=== PATIENT | male | born 1955 | race Caucasian/White ===

== ENCOUNTER 2016-04-08 04:12 | Inpatient (IN) | payer OTHER ==
[2016-04-08] VITALS (7 sets, daily range): BP systolic 99–119; BP diastolic 50–67
[~2016-04-08] VITALS: Ht 177.8 cm; Wt 69.6 kg
[~2016-04-08 04:12] MED LIST: ALB5IS NEB; AMOX500T86 PO; ASPI81TA27 PO; CITA10TA70 PO; CLON0.2T PO; CLOP75TA28 PO; GABA-339 PO; INSLISPI SC; INSUINJ37 SC; Ipratropium Bromide NEB; LOS50T PO; SIMV-13 PO
[2016-04-08] MEDS ORDERED: InsuLIN REG 1unit/0.01ml Soln (100units/ml) IV ONE (04:15)
[2016-04-08] MEDS ORDERED: SODIUM CHLORIDE 0.9% 1,000 ML IV ONE ×2 (04:15→07:30)
[2016-04-08] MEDS ORDERED: SODIUM BICARBONATE 8.4% INJ 50ML SYRINGE ONE (04:17)
[2016-04-08] MEDS ORDERED: PROMETHAZINE HCL 25 MG/ML 1ML ONE (04:25)
[2016-04-08 04:42] LABS: Basophils # (auto) 0 uL; DEFINITIVE VIEW TRANSMISSION; Eosinophils # (auto) 0 uL; Eosinophils % (auto) 0.1 % (0.0-7.0); Hemoglobin 7.4 g/dL (13.5-17.5); Lymphocytes # (auto) 0.9 uL; Lymphocytes % (auto) 5.9 % (10.0-50.0); Mean Corpuscular Hemoglobin 27.6 pg (28.0-32.0); Mean Corpuscular Hgb Conc. 29.5 g/dL (32.0-36.0); Mean Corpuscular Volume 93.6 fL (80.0-100.0); Mean Platelet Volume 8.1 fL (7.4-10.4); Monocytes # (auto) 0 uL; Monocytes % (auto) 0.3 % (0.0-12.0); Neutrophils # (auto) 14.9 uL; Neutrophils % (auto) 93.7 % (37.0-80.0); Platelet Count (auto) 590 10^3/uL (140-450); Red Cell Distribution Width 15.5 % (11.6-16.0); White Blood Cell 15.9 10^3/uL (4.4-10.8)
[2016-04-08] MEDS ORDERED: DEXTROSE (50%) 50ML SYRG IV PRN ×3 (04:45→07:15)
[2016-04-08] MEDS: InsuLIN R (HUMAN) 100 UNITS in SODIUM CHL 0.9% 99 ML IV SCH ×5 (04:54→20:17)
[2016-04-08 05:00] LABS: Albumin 2.4 g/dL (3.4-5.0); Calcium 7.9 mg/dL (8.5-10.1); Magnesium 2.6 mg/dL (1.6-2.6)
[2016-04-08] MEDS ORDERED: PROMETHAZINE HCL 25 MG/ML 1ML IV ONE (05:00)
[2016-04-08] MEDS ORDERED: cefTRIAXone 1GM/50ML D5W 50 ML IV ONE (05:00)
[2016-04-08] MEDS ORDERED: SODIUM BICARBONATE 8.4 % INJ 50ML VIAL IV ONE (05:00)
[2016-04-08] MEDS: ACCU-CHEK COMFORT CURVE STRIP VI SCH ×18 (05:00→23:00)
[2016-04-08 05:01] LABS: INR 1.09 (0.9-1.15); Partial Thromboplastin Time 29.2 sec (22.64-33.71); Prothrombin Time 11.2 sec (9.37-12.3)
[2016-04-08 05:03] LABS: BUN/Creatinine Ratio 15.9; Bilirubin, Total 0.5 mg/dL (0.2-1.0); Lactic Acid 9.1 mmol/L (0.4-2.0); Total Protein 5.3 g/dL (6.4-8.2)
[2016-04-08 05:10] LABS: Potassium 5.8 mmol/L (3.5-5.1)
[2016-04-08] MEDS ORDERED: NOREPINEPHRINE BITARTRATE 250 ML IV SCH (05:15)
[2016-04-08 05:20] LABS: Amylase 20 U/L (25-115)
[2016-04-08] MEDS ORDERED: metroNIDAZOLE 500MG/100ML 100 ML IV ONE (05:30)
[2016-04-08 05:34] LABS: REFLEX LACTIC ACID YES OR NO YES
[2016-04-08 05:44] LABS: Urine Bilirubin Negative (Negative); Urine Blood TRACE /uL (Negative); Urine Color Yellow (Yellow); Urine Glucose 4+ mg/dL (Normal); Urine Ketone 1+ (Negative); Urine Nitrite Negative (Negative); Urine RBC <1 /hpf (0 - 3); Urine Urobilinogen Normal (Negative)
[2016-04-08] MEDS ORDERED: InsuLIN R (HUMAN) 100 UNITS in SODIUM CHL 0.9% 99 ML IV SCH ×5 (06:11→07:12)
[2016-04-08] MEDS ORDERED: SODIUM CHLORIDE 0.9% 3,000 ML IV ONE (06:15)
[2016-04-08 06:19] LABS: B-Type Natriuretic Peptide 342.69 pg/mL (0-100)
[2016-04-08 06:20] LABS: Temperature: 22.9 C (20.0-25.0)
[2016-04-08] MEDS ORDERED: ACCU-CHEK COMFORT CURVE STRIP VI SCH (08:00)
[2016-04-08 08:03] LABS: Lactic Acid 7.8 mmol/L (0.4-2.0)
[2016-04-08 08:06] LABS: REFLEX LACTIC ACID YES OR NO NO
[2016-04-08] MEDS ORDERED: PIPERACILLIN-TAZOB 2.25GM 50 ML IV ONE (09:15)
[2016-04-08] MEDS ORDERED: ONDANSETRON HCL 4 MG/2 ML VIAL IV PRN (09:30)
[2016-04-08] MEDS ORDERED: DOCUSATE SOD 100 MG CAP PO PRN (09:30)
[2016-04-08] MEDS ORDERED: NITROGLYCERIN 0.4 MG SL TAB SL PRN (09:30)
[2016-04-08] MEDS ORDERED: TEMAZEPAM 15 MG CAP PO PRN (09:30)
[2016-04-08] MEDS ORDERED: ACETAMINOPHEN 325 MG TAB PO PRN (09:30)
[2016-04-08] MEDS ORDERED: MORPHINE SULF INJ 2 MG/ML SYRINGE 1ML IV PRN ×2 (09:30)
[2016-04-08] MEDS: ASPirin-EC 81 mg tab PO SCH (09:51)
[2016-04-08] MEDS: CITALOPRAM HYDROBR 20 MG TAB PO SCH (09:51)
[2016-04-08] MEDS: GABAPENTIN 300 MG CAP PO SCH ×2 (09:52→22:03)
[2016-04-08] MEDS: FAMOTIDINE 20 MG TAB PO SCH (09:52)
[2016-04-08] MEDS: ENOXAPARIN SOD 80 MG/0.8ML SYRINGE SC SCH (09:52)
[2016-04-08] MEDS: MULTIPLE VITAMIN TAB PO SCH (09:52)
[2016-04-08] MEDS ORDERED: FAMOTIDINE 20 MG TAB PO SCH (10:00)
[2016-04-08] MEDS ORDERED: ENOXAPARIN SOD 100 MG/1 ML SYRINGE SC SCH (10:00)
[2016-04-08] MEDS ORDERED: CLOPIDOGREL BISULFATE 75 MG TAB PO SCH (10:00)
[2016-04-08] MEDS: PIPERACILLIN-TAZOB 2.25GM 50 ML IV SCH ×2 (10:48→18:40)
[2016-04-08] MEDS: LINEZOLID 600MG/300ML 300 ML IV SCH ×2 (10:48→22:03)
[2016-04-08] MEDS: Boost Glucose Control 8 Ounces PO SCH ×2 (18:00→22:00)
[2016-04-08 19:48] LABS: Hemoglobin 10.5 g/dL (13.5-17.5)
[2016-04-08 21:53] LABS: BUN/Creatinine Ratio 17.9; Bilirubin, Total 0.7 mg/dL (0.2-1.0); Calcium 7.4 mg/dL (8.5-10.1); Potassium 3.9 mmol/L (3.5-5.1); Total Protein 4.7 g/dL (6.4-8.2)
[2016-04-08] MEDS ORDERED: LOSARTAN POTASSIUM 50 MG TAB PO SCH (22:00)
[2016-04-08] MEDS: ATORVASTATIN 20 MG TAB PO SCH (22:03)
[2016-04-09] VITALS (7 sets, daily range): BP systolic 103–143; BP diastolic 47–80
[2016-04-09] MEDS: InsuLIN R (HUMAN) 100 UNITS in SODIUM CHL 0.9% 99 ML IV SCH (00:01)
[2016-04-09] MEDS: PIPERACILLIN-TAZOB 2.25GM 50 ML IV SCH ×2 (00:01→06:42)
[2016-04-09] MEDS ORDERED: DEXTROSE (50%) 50ML SYRG IV PRN ×2 (00:15→11:00)
[2016-04-09] MEDS ORDERED: SODIUM CHLORIDE 0.9% 1,000 ML IV SCH (00:15)
[2016-04-09] MEDS: HYDROcodone-ACET 5/325MG TAB PO PRN ×2 (01:43→18:50)
[2016-04-09] MEDS: InsuLIN REG 1unit/0.01ml Soln (100units/ml) SC SCH ×2 (04:00→07:55)
[2016-04-09] MEDS: ACCU-CHEK COMFORT CURVE STRIP VI SCH ×6 (04:00→20:00)
[2016-04-09] MEDS: Boost Glucose Control 8 Ounces PO SCH ×4 (06:00→22:00)
[2016-04-09 06:47] LABS: Hemoglobin 9.4 g/dL (13.5-17.5); Mean Corpuscular Hemoglobin 28.4 pg (28.0-32.0); Mean Corpuscular Hgb Conc. 32.3 g/dL (32.0-36.0); Platelet Count (auto) 345 10^3/uL (140-450); Red Cell Distribution Width 15.6 % (11.6-16.0); SUSPECT VIEW TRANSMISSION
[2016-04-09 07:12] LABS: Metamyelocytes % 0; Myelocytes % 0; Promyelocytes % 0; Reactive Lymphocytes 0
[2016-04-09] MEDS ORDERED: PRASUGREL HCL 10 MG TAB PO ONE (08:30)
[2016-04-09 08:34] LABS: Albumin 2.1 g/dL (3.4-5.0); BUN/Creatinine Ratio 19.5; Bilirubin, Total 0.6 mg/dL (0.2-1.0); Calcium 9.2 mg/dL (8.5-10.1); Potassium 4.6 mmol/L (3.5-5.1); Total Protein 4.8 g/dL (6.4-8.2)
[2016-04-09 08:53] LABS: Platelet Estimate Adequate
[2016-04-09] MEDS: GABAPENTIN 300 MG CAP PO SCH ×2 (09:53→22:41)
[2016-04-09] MEDS: FAMOTIDINE 20 MG TAB PO SCH (09:53)
[2016-04-09] MEDS: ASPirin-EC 81 mg tab PO SCH (09:53)
[2016-04-09] MEDS: LINEZOLID 600MG/300ML 300 ML IV SCH (09:53)
[2016-04-09] MEDS: MULTIPLE VITAMIN TAB PO SCH (09:53)
[2016-04-09] MEDS: CITALOPRAM HYDROBR 20 MG TAB PO SCH (09:53)
[2016-04-09] MEDS: ENOXAPARIN SOD 80 MG/0.8ML SYRINGE SC SCH (09:54)
[2016-04-09] MEDS ORDERED: InsuLIN REG 1unit/0.01ml Soln (100units/ml) SC SCH (12:00)
[2016-04-09 12:21] LABS: BUN/Creatinine Ratio 16.6; Calcium 7.8 mg/dL (8.5-10.1); Potassium 4.1 mmol/L (3.5-5.1)
[2016-04-09] MEDS: INSULIN DETEMIR(LEVEMIR) 1unit/0.01ml Soln (100units/ml) SC SCH (13:05)
[2016-04-09] MEDS: NovoloG Insulin 1unit/0.01ml Soln (100units/ml) SC SCH ×3 (13:06→20:44)
[2016-04-09] MEDS: SODIUM BICARBONATE 50ML VIAL 50 ML in SOD CHL 0.45% 1,000 ML IV SCH ×2 (18:17→18:45)
[2016-04-09 18:55] LABS: BUN/Creatinine Ratio 19.7; Calcium 7.7 mg/dL (8.5-10.1); Potassium 3.8 mmol/L (3.5-5.1)
[2016-04-09 19:23] LABS: Basophils # (auto) 0.1 uL; Basophils % (auto) 0.3 % (0.0-2.0); Eosinophils # (auto) 0.3 uL; Eosinophils % (auto) 2.2 % (0.0-7.0); Hematocrit 32.6 % (41.0-53.0); Hemoglobin 10.4 g/dL (13.5-17.5); Lymphocytes # (auto) 0.8 uL; Lymphocytes % (auto) 5.3 % (10.0-50.0); Mean Corpuscular Volume 87.6 fL (80.0-100.0); Mean Platelet Volume 7.6 fL (7.4-10.4); Monocytes # (auto) 0.5 uL; Monocytes % (auto) 3.1 % (0.0-12.0); Neutrophils # (auto) 14.2 uL; Neutrophils % (auto) 89.1 % (37.0-80.0); Platelet Count (auto) 362 10^3/uL (140-450); Red Cell Distribution Width 15.5 % (11.6-16.0)
[2016-04-09] MEDS: ACETYLCYSTEINE ORAL for CIN 20%(200MG/ML) 4ML PO SCH (22:00)
[2016-04-09] MEDS: ALBUMIN 25% 100 ML IV SCH (22:40)
[2016-04-09] MEDS: ATORVASTATIN 20 MG TAB PO SCH (22:41)
[2016-04-09] MEDS ORDERED: ACETYLCYSTEINE 20%(200MG/ML) SOLN 30ML ONE (23:04)
[2016-04-10] VITALS (7 sets, daily range): BP systolic 127–185; BP diastolic 85–100
[2016-04-10 01:52] LABS: BUN/Creatinine Ratio 21.7; Calcium 7.7 mg/dL (8.5-10.1)
[2016-04-10] MEDS: SODIUM BICARBONATE 50ML VIAL 50 ML in SOD CHL 0.45% 1,000 ML IV SCH ×2 (03:45→14:15)
[2016-04-10] MEDS: ACCU-CHEK COMFORT CURVE STRIP VI SCH ×7 (04:00→23:25)
[2016-04-10] MEDS: NovoloG Insulin 1unit/0.01ml Soln (100units/ml) SC SCH ×7 (04:34→23:25)
[2016-04-10] MEDS: cloNIDine HCL 0.1 MG TAB PO PRN ×4 (04:55→23:17)
[2016-04-10] MEDS: Boost Glucose Control 8 Ounces PO SCH ×4 (06:00→21:39)
[2016-04-10 06:09] LABS: Basophils # (auto) 0 uL; Basophils % (auto) 0.2 % (0.0-2.0); DEFINITIVE VIEW TRANSMISSION; Eosinophils # (auto) 0.3 uL; Eosinophils % (auto) 2.6 % (0.0-7.0); Hematocrit 26.2 % (41.0-53.0); Hemoglobin 8.4 g/dL (13.5-17.5); Lymphocytes # (auto) 1.1 uL; Lymphocytes % (auto) 9.2 % (10.0-50.0); Mean Corpuscular Hemoglobin 27.7 pg (28.0-32.0); Mean Corpuscular Hgb Conc. 31.9 g/dL (32.0-36.0); Mean Corpuscular Volume 86.9 fL (80.0-100.0); Mean Platelet Volume 7.8 fL (7.4-10.4); Monocytes # (auto) 0.4 uL; Monocytes % (auto) 3.7 % (0.0-12.0); Neutrophils # (auto) 9.7 uL; Neutrophils % (auto) 84.3 % (37.0-80.0); Platelet Count (auto) 298 10^3/uL (140-450); Red Cell Distribution Width 15.8 % (11.6-16.0); White Blood Cell 11.6 10^3/uL (4.4-10.8)
[2016-04-10 06:16] LABS: INR 1.01 (0.9-1.15); Partial Thromboplastin Time 27.6 sec (22.64-33.71); Prothrombin Time 10.4 sec (9.37-12.3)
[2016-04-10] MEDS: ALBUMIN 25% 100 ML IV SCH ×3 (06:35→21:39)
[2016-04-10 06:38] LABS: Calcium 7.8 mg/dL (8.5-10.1); Magnesium 2.2 mg/dL (1.6-2.6); Phosphorus 2.1 mg/dL (2.5-4.90); Potassium 4.1 mmol/L (3.5-5.1)
[2016-04-10] MEDS: INSULIN DETEMIR(LEVEMIR) 1unit/0.01ml Soln (100units/ml) SC SCH (07:15)
[2016-04-10] MEDS: ASPirin-EC 81 mg tab PO SCH (08:55)
[2016-04-10] MEDS: GABAPENTIN 300 MG CAP PO SCH ×2 (08:56→21:36)
[2016-04-10] MEDS: CITALOPRAM HYDROBR 20 MG TAB PO SCH (08:56)
[2016-04-10] MEDS: FAMOTIDINE 20 MG TAB PO SCH (08:56)
[2016-04-10] MEDS: MULTIPLE VITAMIN TAB PO SCH (08:56)
[2016-04-10] MEDS: PRASUGREL HCL 10 MG TAB PO SCH (08:56)
[2016-04-10] MEDS: ACETYLCYSTEINE ORAL for CIN 20%(200MG/ML) 4ML PO SCH ×2 (09:02→21:42)
[2016-04-10] MEDS ORDERED: predniSONE 20 MG TAB PO ONE ×2 (09:30→15:30)
[2016-04-10] MEDS: FERROUS SULFATE 325 MG TAB PO SCH ×2 (12:13→18:00)
[2016-04-10] MEDS ORDERED: SODIUM PHOSPHATES 20 MEQ in SODIUM CHL 0.9% 100 ML IV ONE (12:45)
[2016-04-10] MEDS ORDERED: IOHEXOL 350 MG/ML 100ML IJ ONE (13:43)
[2016-04-10] MEDS ORDERED: LIDOCAINE 2%HCL (LOCAL ANESTH.) INJ 20ML MDV ONE (13:43)
[2016-04-10] MEDS ORDERED: diphenhdrAMINE HCL 50 MG/1 ML VL IV ONE (15:30)
[2016-04-10] MEDS ORDERED: FAMOTIDINE (10MG/ML) 2ML VL IV ONE ×2 (15:30→16:05)
[2016-04-10] MEDS ORDERED: SODIUM CHL 0.9% 50 ML ONE (15:45)
[2016-04-10] MEDS ORDERED: ANGIOMAX 250 MG VIAL IV ONE (15:45)
[2016-04-10] MEDS ORDERED: MIDAZOLAM HCL 1MG/1ML-2 ML VIAL ONE (15:45)
[2016-04-10] MEDS ORDERED: fentaNYL CITRATE 100 MCG/2 ML VL ONE (15:45)
[2016-04-10] MEDS ORDERED: EPTIFIBATIDE INJ (2MG/ML) 10ML VIAL IV ONE (15:45)
[2016-04-10] MEDS ORDERED: methylPREDNISolone SOD SUCC 125 MG/2 ML VL ONE (16:05)
[2016-04-10] MEDS ORDERED: diphenhdrAMINE HCL 50 MG/1 ML VL ONE (16:05)
[2016-04-10] MEDS ORDERED: VERAPAMIL 2.5MG/ML INJ 2ML VIAL IV ONE ×2 (16:06→16:10)
[2016-04-10] MEDS ORDERED: CLONIDINE 0.3 MG/24 HR TD ONE (19:00)
[2016-04-10] MEDS: ATORVASTATIN 20 MG TAB PO SCH (21:37)
[2016-04-11] VITALS (11 sets, daily range): BP systolic 121–193; BP diastolic 69–108
[2016-04-11] MEDS: SODIUM BICARBONATE 50ML VIAL 50 ML in SOD CHL 0.45% 1,000 ML IV SCH ×2 (01:18→11:10)
[2016-04-11] MEDS: cloNIDine HCL 0.1 MG TAB PO PRN ×4 (02:30→10:04)
[2016-04-11] MEDS: ACCU-CHEK COMFORT CURVE STRIP VI SCH ×5 (04:19→20:13)
[2016-04-11] MEDS: NovoloG Insulin 1unit/0.01ml Soln (100units/ml) SC SCH ×5 (04:20→20:00)
[2016-04-11] MEDS: Boost Glucose Control 8 Ounces PO SCH ×4 (05:41→22:00)
[2016-04-11 06:39] LABS: Basophils # (auto) 0 uL; Eosinophils # (auto) 0 uL; Eosinophils % (auto) 0.1 % (0.0-7.0); Hematocrit 28.4 % (41.0-53.0); Lymphocytes # (auto) 0.5 uL; Lymphocytes % (auto) 8.1 % (10.0-50.0); Mean Corpuscular Hemoglobin 27.3 pg (28.0-32.0); Mean Corpuscular Hgb Conc. 31.8 g/dL (32.0-36.0); Mean Platelet Volume 7.7 fL (7.4-10.4); Monocytes # (auto) 0.1 uL; Monocytes % (auto) 2.4 % (0.0-12.0); Neutrophils # (auto) 5.1 uL; Neutrophils % (auto) 89.4 % (37.0-80.0); Platelet Count (auto) 239 10^3/uL (140-450); Red Cell Distribution Width 15.9 % (11.6-16.0); White Blood Cell 5.8 10^3/uL (4.4-10.8)
[2016-04-11] MEDS: INSULIN DETEMIR(LEVEMIR) 1unit/0.01ml Soln (100units/ml) SC SCH (07:00)
[2016-04-11 07:05] LABS: BUN/Creatinine Ratio 21.1; Calcium 8.2 mg/dL (8.5-10.1); Magnesium 2.2 mg/dL (1.6-2.6); Potassium 4.2 mmol/L (3.5-5.1)
[2016-04-11] MEDS: FAMOTIDINE 20 MG TAB PO SCH (08:46)
[2016-04-11] MEDS: ASPirin-EC 81 mg tab PO SCH (08:47)
[2016-04-11] MEDS: MULTIPLE VITAMIN TAB PO SCH (08:47)
[2016-04-11] MEDS: GABAPENTIN 300 MG CAP PO SCH ×2 (08:47→21:26)
[2016-04-11] MEDS: PRASUGREL HCL 10 MG TAB PO SCH (08:47)
[2016-04-11] MEDS: FERROUS SULFATE 325 MG TAB PO SCH ×3 (08:47→17:21)
[2016-04-11] MEDS: CITALOPRAM HYDROBR 20 MG TAB PO SCH (08:47)
[2016-04-11] MEDS: LOSARTAN POTASSIUM 50 MG TAB PO SCH (11:06)
[2016-04-11] MEDS: DIPHENOXYLATE W/ATROPINE 2.5 MG TAB PO PRN (14:25)
[2016-04-11] MEDS: ISOSORBIDE MONONITRATE 60 MG TAB PO SCH (14:26)
[2016-04-11] MEDS: ATORVASTATIN 20 MG TAB PO SCH (21:26)
[2016-04-12] MEDS: NovoloG Insulin 1unit/0.01ml Soln (100units/ml) SC SCH ×4 (00:14→12:00)
[2016-04-12] MEDS: ACCU-CHEK COMFORT CURVE STRIP VI SCH ×4 (00:15→12:16)
[2016-04-12 05:00] VITALS: BP 153/89
[2016-04-12] MEDS: INSULIN DETEMIR(LEVEMIR) 1unit/0.01ml Soln (100units/ml) SC SCH (06:14)
[2016-04-12 06:31] LABS: Basophils # (auto) 0 uL; Basophils % (auto) 0.1 % (0.0-2.0); DEFINITIVE VIEW TRANSMISSION; Eosinophils # (auto) 0 uL; Eosinophils % (auto) 0.2 % (0.0-7.0); Hematocrit 25.9 % (41.0-53.0); Hemoglobin 8.4 g/dL (13.5-17.5); Lymphocytes # (auto) 1.3 uL; Lymphocytes % (auto) 15.5 % (10.0-50.0); Mean Corpuscular Hemoglobin 27.8 pg (28.0-32.0); Mean Corpuscular Hgb Conc. 32.4 g/dL (32.0-36.0); Mean Corpuscular Volume 85.7 fL (80.0-100.0); Mean Platelet Volume 7.7 fL (7.4-10.4); Monocytes # (auto) 0.5 uL; Monocytes % (auto) 6.6 % (0.0-12.0); Neutrophils # (auto) 6.4 uL; Neutrophils % (auto) 77.6 % (37.0-80.0); Platelet Count (auto) 186 10^3/uL (140-450); Red Cell Distribution Width 15.4 % (11.6-16.0); White Blood Cell 8.2 10^3/uL (4.4-10.8)
[2016-04-12 07:01] LABS: BUN/Creatinine Ratio 26.7; Calcium 8.2 mg/dL (8.5-10.1); Magnesium 2.2 mg/dL (1.6-2.6); Potassium 3.8 mmol/L (3.5-5.1)
[2016-04-12] MEDS: Boost Glucose Control 8 Ounces PO SCH ×2 (07:20→12:12)
[2016-04-12] MEDS: FERROUS SULFATE 325 MG TAB PO SCH ×2 (07:51→12:00)
[2016-04-12] MEDS: GABAPENTIN 300 MG CAP PO SCH (09:31)
[2016-04-12] MEDS: ASPirin-EC 81 mg tab PO SCH (09:31)
[2016-04-12] MEDS: FAMOTIDINE 20 MG TAB PO SCH (09:31)
[2016-04-12] MEDS: MULTIPLE VITAMIN TAB PO SCH (09:31)
[2016-04-12] MEDS: PRASUGREL HCL 10 MG TAB PO SCH (09:31)
[2016-04-12] MEDS: ISOSORBIDE MONONITRATE 60 MG TAB PO SCH (09:32)
[2016-04-12] MEDS: LOSARTAN POTASSIUM 50 MG TAB PO SCH (09:32)
[2016-04-12] MEDS: CITALOPRAM HYDROBR 20 MG TAB PO SCH (09:32)
[2016-04-12 10:30] VITALS: BP 151/81
[2016-04-12] MEDS: DIPHENOXYLATE W/ATROPINE 2.5 MG TAB PO PRN (12:14)
[2016-04-13 10:06] LABS: Vitamin D 25-Hydroxy 25 ng/mL (.); Vitamin D-2 25-Hydroxy <1.0 ng/mL (.)
== END 2016-04-12 12:20 | disposition home or self-care (01) | DRG 853 ==
LOC: EDBD 04:12 → ER 04:15 → TELE 04:16 → TELE-WESTW 04-09 01:25
PROVIDERS: ADMIT Internal Medicine; ATTEND Internal Medicine
PROC: 30233N1 Transfusion of Nonautologous Red Blood Cells into Peripheral Vein, Percutaneous Approach (ICD-10-PCS; 2016-04-08)
PROC: 02703ZZ Dilation of Coronary Artery, One Artery, Percutaneous Approach (ICD-10-PCS; principal; 2016-04-10)
PROC: 4A023N7 Measurement of Cardiac Sampling and Pressure, Left Heart, Percutaneous Approach (ICD-10-PCS; 2016-04-10)
PROC: B2151ZZ Fluoroscopy of Left Heart using Low Osmolar Contrast (ICD-10-PCS; 2016-04-10)
PROC: B2111ZZ Fluoroscopy of Multiple Coronary Arteries using Low Osmolar Contrast (ICD-10-PCS; 2016-04-10)
DX: A41.9 Sepsis, unspecified organism (principal); I21.4 Non-ST elevation (NSTEMI) myocardial infarction; E10.10 Type 1 diabetes mellitus with ketoacidosis without coma; E43 Unspecified severe protein-calorie malnutrition; N17.0 Acute kidney failure with tubular necrosis; I50.40 Unspecified combined systolic (congestive) and diastolic (congestive) heart failure; E87.1 Hypo-osmolality and hyponatremia; I13.0 Hypertensive heart and chronic kidney disease with heart failure and stage 1 through stage 4 chronic kidney disease, or unspecified chronic kidney disease; E10.21 Type 1 diabetes mellitus with diabetic nephropathy; D63.8 Anemia in other chronic diseases classified elsewhere; J44.9 Chronic obstructive pulmonary disease, unspecified; N18.3 Chronic kidney disease, stage 3 (moderate); F32.9 Major depressive disorder, single episode, unspecified; E87.5 Hyperkalemia; D75.89 Other specified diseases of blood and blood-forming organs; E10.22 Type 1 diabetes mellitus with diabetic chronic kidney disease; E10.40 Type 1 diabetes mellitus with diabetic neuropathy, unspecified; E10.649 Type 1 diabetes mellitus with hypoglycemia without coma; E78.5 Hyperlipidemia, unspecified; E83.51 Hypocalcemia; E86.0 Dehydration; F12.90 Cannabis use, unspecified, uncomplicated; F17.210 Nicotine dependence, cigarettes, uncomplicated; I25.10 Atherosclerotic heart disease of native coronary artery without angina pectoris; E83.39 Other disorders of phosphorus metabolism; T68.XXXA Hypothermia, initial encounter; Z68.22 Body mass index [BMI] 22.0-22.9, adult; Z91.19 Patient's noncompliance with other medical treatment and regimen; Z95.5 Presence of coronary angioplasty implant and graft; Z79.4 Long term (current) use of insulin; I25.2 Old myocardial infarction; Z79.82 Long term (current) use of aspirin; Z88.8 Allergy status to other drugs, medicaments and biological substances; Z79.899 Other long term (current) drug therapy
CPT/HCPCS: 36415; 36430; 36600; 51702; 71010; 71250; 74176; 76775; 80048; 80053; 81001; 82150; 82270; 82306; 82570; 82728; 82805; 82947; 82962; 83036; 83540; 83550; 83605; 83690; 83735; 83880; 83970; 84100; 84156; 84300; 84484; 85007; 85014; 85018; 85025; 85027; 85048; 85610; 85730; 86850; 86900; 86901; 86920; 87040; 87081; 87086; 87493; 92920; 93005; 93306; 96361; 96365; 96366; 96367; 96368; 96375; 97001; 99152; 99291; G0434; J0696; J1815; J2250; J2543; J3490

== ENCOUNTER 2017-12-16 10:13 | Inpatient (IN) | payer OTHER ==
[~2017-12-16] VITALS: Ht 177.8 cm; Wt 67.0 kg
[~2017-12-16 10:13] MED LIST changes: -AMOX500T86 PO; -LOS50T PO; +VER180ST PO
[2017-12-16 10:51] LABS: Basophils # (auto) 0 uL; Basophils % (auto) 0.7 % (0.0-2.0); Eosinophils # (auto) 0.2 uL; Eosinophils % (auto) 3.7 % (0.0-7.0); Hematocrit 39.1 % (41.0-53.0); Lymphocytes # (auto) 0.7 uL; Lymphocytes % (auto) 10.8 % (10.0-50.0); Mean Corpuscular Hemoglobin 29.1 pg (28.0-32.0); Mean Corpuscular Hgb Conc. 33.2 g/dL (32.0-36.0); Mean Corpuscular Volume 87.5 fL (80.0-100.0); Monocytes # (auto) 0.4 uL; Monocytes % (auto) 6.1 % (0.0-12.0); Neutrophils # (auto) 4.8 uL; Neutrophils % (auto) 78.7 % (37.0-80.0); Nucleated Red Blood Cells % 0.1 %; Platelet Count (auto) 201 10^3/uL (140-450); Red Blood Cells 4.47 10^6/uL (4.5-5.90); Red Cell Distribution Width 15.6 % (11.8-14.3); White Blood Cell 6.1 10^3/uL (4.4-10.8)
[2017-12-16 11:07] LABS: Alanine Aminotransferase 22 U/L (16-61); Albumin 3.9 g/dL (3.4-5.0); Anion Gap 12 (5-15); Aspartate Aminotransferase 14 U/L (15-37); BUN/Creatinine Ratio 14.8; Blood Urea Nitrogen 48 mg/dL (7-18); Calcium 8.9 mg/dL (8.5-10.1); Carbon Dioxide 21 mmol/L (21-32); Chloride 97 mmol/L (98-107); GFR African American 25 mL/min; GFR Non-African American 21 mL/min; Glucose 342 mg/dL (74-106); Potassium 5.1 mmol/L (3.5-5.1); Sodium 130 mmol/L (136-145)
[2017-12-16 11:09] LABS: Alkaline Phosphatase 140 U/L (45-117); Bilirubin, Total 0.7 mg/dL (0.2-1.0); Total Protein 7.2 g/dL (6.4-8.2)
[2017-12-16] MEDS ORDERED: ASPirin 81 mg TAB PO ONE (12:00)
[2017-12-16] MEDS ORDERED: SODIUM CHLORIDE 0.9% 1,000 ML IV ONE (12:30)
[2017-12-16] MEDS ORDERED: MORPHINE SULFATE 4 MG/ML SYR/VIAL IV ONE (12:30)
[2017-12-16] MEDS ORDERED: ONDANSETRON HCL 4 MG/2 ML VIAL IV ONE (12:30)
[2017-12-16 12:45] LABS: INR 0.87 (0.9-1.15); Partial Thromboplastin Time 29.4 sec (23.78-33.04); Prothrombin Time 9.4 sec (9.27-12.13)
[2017-12-16 13:59] LABS: Amylase 29 U/L (25-115); Lipase 74 U/L (73-393)
[2017-12-16] MEDS ORDERED: DEXTROSE (50%) 50ML SYRG IV PRN (14:45)
[2017-12-16] MEDS ORDERED: MORPHINE SULFATE 4 MG/ML SYR/VIAL IV PRN (14:45)
[2017-12-16] MEDS ORDERED: NITROGLYCERIN 0.4 MG SL TAB SL PRN (14:45)
[2017-12-16] MEDS ORDERED: ONDANSETRON HCL 4 MG/2 ML VIAL IV PRN (14:45)
[2017-12-16] MEDS ORDERED: cefTRIAXone 1GM/50ML D5W 50 ML IV ONE (14:45)
[2017-12-16] MEDS ORDERED: ALBUTEROL SULF 2.5 MG/0.5ML(0.5%) NEB SOLN NEB PRN (14:45)
[2017-12-16] MEDS ORDERED: PANTOPRAZOLE 40 MG/10 ML VIAL IV ONE (14:45)
[2017-12-16] MEDS: SODIUM CHLORIDE 0.9% 1,000 ML IV SCH (15:10)
[2017-12-16] MEDS: MORPHINE SULFATE 4 MG/ML SYR/VIAL IV PRN ×2 (15:15)
[2017-12-16] MEDS ORDERED: SODIUM POLYSTYRENE SULF 15 GM POWDER PO ONE (15:15)
[2017-12-16] MEDS: LORazepam 2MG/ML-1ML VIAL IV PRN (16:05)
[2017-12-16] MEDS: ACCU-CHEK COMFORT CURVE STRIP VI SCH ×2 (16:27→21:13)
[2017-12-16] MEDS: InsuLIN REG 1unit/0.01ml Soln (100units/ml) SC SCH ×3 (16:29→21:22)
[2017-12-16] MEDS ORDERED: cloNIDine HCL 0.1 MG TAB PO PRN (16:45)
[2017-12-16] MEDS ORDERED: cloNIDine HCL 0.1 MG TAB PO ONE (16:45)
[2017-12-16] MEDS ORDERED: LACTULOSE 20Gm/30ML SOLN PO PRN (17:45)
[2017-12-16] MEDS ORDERED: LABETALOL HCL 5 MG/ML ML 20ML VIAL IV ONE (18:30)
[2017-12-16] MEDS: metroNIDAZOLE 500MG/100ML 100 ML IV SCH (18:39)
[2017-12-16] MEDS: IPRATROPIUM BROM 0.5 MG/2.5ML INH SOL NEB SCH (18:42)
[2017-12-16] MEDS: ALBUTEROL SULF 2.5 MG/0.5ML(0.5%) NEB SOLN NEB SCH (18:42)
[2017-12-16 19:41] VITALS: BP 114/92
[2017-12-16 19:43] LABS: Urine Bacteria NONE SEEN /hpf (None Seen); Urine Blood TRACE /uL (Negative); Urine Specific Gravity 1.009 (1.001-1.035); Urine WBC <1 /hpf (0 - 3)
[2017-12-16 19:57] LABS: Alcohol, Urine < 3.0 mg/dL (0-5); Amphetamine Screen, Urine NEGATIVE (NEGATIVE); Barbiturate Scree,Urine NEGATIVE (NEGATIVE); Benzodiazephine Screen, Urine NEGATIVE (NEGATIVE); Cannabinoid Screen, Urine POSITIVE (NEGATIVE); Cocaine Screen, Urine NEGATIVE (NEGATIVE); Opiate Scree,Urine NEGATIVE (NEGATIVE); Phencyclidine Screen, Urine NEGATIVE (NEGATIVE)
[2017-12-16 20:10] VITALS: BP 127/71
[2017-12-16] MEDS ORDERED: LACT30003 PO (20:54)
[2017-12-16] MEDS ORDERED: BECL80AE11 IN (20:54)
[2017-12-16] MEDS ORDERED: [UNRECOGNIZED DRUG - CODE] (20:54)
[2017-12-16] MEDS: cloNIDine HCL 0.1 MG TAB PO SCH (21:54)
[2017-12-16] MEDS: CITALOPRAM HYDROBR 20 MG TAB PO SCH (21:55)
[2017-12-16] MEDS: ATORVASTATIN 20 MG TAB PO SCH (21:55)
[2017-12-16] MEDS: GABAPENTIN 300 MG CAP PO SCH (21:55)
[2017-12-16 22:00] VITALS: BP 127/71
[2017-12-17] VITALS (8 sets, daily range): BP systolic 119–171; BP diastolic 64–88
[2017-12-17] MEDS: ACCU-CHEK COMFORT CURVE STRIP VI SCH ×6 (00:44→20:04)
[2017-12-17] MEDS: metroNIDAZOLE 500MG/100ML 100 ML IV SCH ×4 (00:44→18:21)
[2017-12-17] MEDS: SODIUM CHLORIDE 0.9% 1,000 ML IV SCH ×3 (00:45→21:32)
[2017-12-17] MEDS: IPRATROPIUM BROM 0.5 MG/2.5ML INH SOL NEB SCH ×4 (01:15→19:03)
[2017-12-17] MEDS: ALBUTEROL SULF 2.5 MG/0.5ML(0.5%) NEB SOLN NEB SCH ×4 (01:15→19:03)
[2017-12-17] MEDS: InsuLIN REG 1unit/0.01ml Soln (100units/ml) SC SCH ×6 (04:00→20:00)
[2017-12-17 06:04] LABS: Basophils # (auto) 0 uL; Basophils % (auto) 0.2 % (0.0-2.0); Eosinophils # (auto) 0.3 uL; Eosinophils % (auto) 4.6 % (0.0-7.0); Hematocrit 28.9 % (41.0-53.0); Hemoglobin 9.9 g/dL (13.5-17.5); Lymphocytes # (auto) 0.4 uL; Lymphocytes % (auto) 6.2 % (10.0-50.0); Mean Corpuscular Hemoglobin 29.8 pg (28.0-32.0); Mean Corpuscular Hgb Conc. 34.4 g/dL (32.0-36.0); Mean Corpuscular Volume 86.7 fL (80.0-100.0); Monocytes # (auto) 0.6 uL; Monocytes % (auto) 7.9 % (0.0-12.0); Neutrophils # (auto) 5.7 uL; Neutrophils % (auto) 81.1 % (37.0-80.0); Nucleated Red Blood Cells % 0.1 %; Platelet Count (auto) 153 10^3/uL (140-450); Red Blood Cells 3.33 10^6/uL (4.5-5.90); Red Cell Distribution Width 15.2 % (11.8-14.3)
[2017-12-17 06:18] LABS: Albumin 2.8 g/dL (3.4-5.0); Calcium 7.4 mg/dL (8.5-10.1); Potassium 4.5 mmol/L (3.5-5.1)
[2017-12-17 06:22] LABS: BUN/Creatinine Ratio 14.3
[2017-12-17 06:24] LABS: Bilirubin, Total 0.7 mg/dL (0.2-1.0); Total Protein 5.1 g/dL (6.4-8.2)
[2017-12-17] MEDS: cefTRIAXone 1GM/50ML D5W 50 ML IV SCH (09:04)
[2017-12-17] MEDS: MORPHINE SULFATE 4 MG/ML SYR/VIAL IV PRN ×3 (09:06→22:58)
[2017-12-17] MEDS ORDERED: ENOXAPARIN SOD 30 MG/0.3 ML SYRINGE SC SCH (10:00)
[2017-12-17] MEDS ORDERED: PNEUMOCOCCAL VACC POLYS 25 MCG/0.5 ML VIAL IM ONE (10:00)
[2017-12-17] MEDS: PANTOPRAZOLE 40 MG/10 ML VIAL IV SCH (10:45)
[2017-12-17] MEDS: ASPirin-EC 81 mg tab PO SCH (10:46)
[2017-12-17] MEDS: cloNIDine HCL 0.1 MG TAB PO SCH ×2 (10:46→21:24)
[2017-12-17] MEDS: CLOPIDOGREL BISULFATE 75 MG TAB PO SCH (10:47)
[2017-12-17] MEDS: NITROGLYCERIN 0.2MG/HR TOPICAL PATCH TD SCH (10:48)
[2017-12-17] MEDS: LORazepam 2MG/ML-1ML VIAL IV PRN ×2 (12:19→21:26)
[2017-12-17] MEDS ORDERED: FUROSEMIDE 40 MG/4 ML VIAL IV ONE (17:15)
[2017-12-17] MEDS ORDERED: SALINE 0.65 % NASAL SPRAY 45ML BOTTLE EACHNOSTRI ONE (17:15)
[2017-12-17] MEDS: ATORVASTATIN 20 MG TAB PO SCH (21:25)
[2017-12-17] MEDS: GABAPENTIN 300 MG CAP PO SCH (21:25)
[2017-12-17] MEDS: CITALOPRAM HYDROBR 20 MG TAB PO SCH (21:26)
[2017-12-18] MEDS: IPRATROPIUM BROM 0.5 MG/2.5ML INH SOL NEB SCH ×4 (00:17→19:40)
[2017-12-18] MEDS: ALBUTEROL SULF 2.5 MG/0.5ML(0.5%) NEB SOLN NEB SCH ×4 (00:17→19:40)
[2017-12-18] MEDS: metroNIDAZOLE 500MG/100ML 100 ML IV SCH ×4 (00:21→17:18)
[2017-12-18] MEDS: ACCU-CHEK COMFORT CURVE STRIP VI SCH ×6 (00:22→20:59)
[2017-12-18] MEDS: InsuLIN REG 1unit/0.01ml Soln (100units/ml) SC SCH ×6 (00:23→21:01)
[2017-12-18] MEDS: MORPHINE SULFATE 4 MG/ML SYR/VIAL IV PRN ×2 (03:54→23:07)
[2017-12-18 04:36] VITALS: BP 163/96
[2017-12-18] MEDS: SODIUM CHLORIDE 0.9% 1,000 ML IV SCH ×2 (06:34→16:34)
[2017-12-18] MEDS: HYDROmorphone HCL 2 MG/ML VL IV PRN ×5 (07:35→18:05)
[2017-12-18] MEDS ORDERED: HYDROcodone-ACET 10/325MG TAB PO ONE (08:45)
[2017-12-18 09:00] VITALS: BP 186/84
[2017-12-18] MEDS: cefTRIAXone 1GM/50ML D5W 50 ML IV SCH (09:00)
[2017-12-18] MEDS: NITROGLYCERIN 0.2MG/HR TOPICAL PATCH TD SCH (10:00)
[2017-12-18] MEDS: CLOPIDOGREL BISULFATE 75 MG TAB PO SCH (10:40)
[2017-12-18] MEDS: PANTOPRAZOLE 40 MG/10 ML VIAL IV SCH (10:40)
[2017-12-18] MEDS: ASPirin-EC 81 mg tab PO SCH (10:40)
[2017-12-18] MEDS: ENOXAPARIN SOD 30 MG/0.3 ML SYRINGE SC SCH (10:40)
[2017-12-18] MEDS: cloNIDine HCL 0.1 MG TAB PO SCH ×2 (10:41→22:00)
[2017-12-18] MEDS: HYDROcodone-ACET 10/325MG TAB PO PRN ×3 (11:03→18:59)
[2017-12-18 13:06] VITALS: BP 158/75
[2017-12-18 17:00] VITALS: BP 168/93
[2017-12-18 21:38] VITALS: BP 159/79
[2017-12-18] MEDS: LORazepam 2MG/ML-1ML VIAL IV PRN (22:31)
[2017-12-18] MEDS: ATORVASTATIN 20 MG TAB PO SCH (22:51)
[2017-12-18] MEDS: CITALOPRAM HYDROBR 20 MG TAB PO SCH (22:51)
[2017-12-18] MEDS: GABAPENTIN 300 MG CAP PO SCH (22:52)
[2017-12-19] MEDS: ALBUTEROL SULF 2.5 MG/0.5ML(0.5%) NEB SOLN NEB SCH ×4 (00:21→11:59)
[2017-12-19] MEDS: IPRATROPIUM BROM 0.5 MG/2.5ML INH SOL NEB SCH ×4 (00:21→11:59)
[2017-12-19] MEDS: metroNIDAZOLE 500MG/100ML 100 ML IV SCH ×2 (00:43→06:43)
[2017-12-19] MEDS: ACCU-CHEK COMFORT CURVE STRIP VI SCH ×3 (00:52→08:22)
[2017-12-19] MEDS: InsuLIN REG 1unit/0.01ml Soln (100units/ml) SC SCH ×3 (00:53→08:00)
[2017-12-19] MEDS: HYDROmorphone HCL 2 MG/ML VL IV PRN ×2 (01:57→08:21)
[2017-12-19] MEDS: cloNIDine HCL 0.1 MG TAB PO SCH ×2 (04:42→08:20)
[2017-12-19] MEDS: HYDROcodone-ACET 10/325MG TAB PO PRN (04:48)
[2017-12-19 05:00] VITALS: BP 166/79
[2017-12-19] MEDS: cefTRIAXone 1GM/50ML D5W 50 ML IV SCH (08:19)
[2017-12-19] MEDS: NITROGLYCERIN 0.2MG/HR TOPICAL PATCH TD SCH (08:19)
[2017-12-19] MEDS: CLOPIDOGREL BISULFATE 75 MG TAB PO SCH (08:21)
[2017-12-19] MEDS: ASPirin-EC 81 mg tab PO SCH (08:21)
[2017-12-19] MEDS: PANTOPRAZOLE 40 MG/10 ML VIAL IV SCH (08:21)
[2017-12-19] MEDS: ENOXAPARIN SOD 30 MG/0.3 ML SYRINGE SC SCH (08:21)
[2017-12-19 09:00] VITALS: BP 166/84
[2017-12-19] MEDS ORDERED: SUCRALFATE 1 GM TAB PO SCH (11:30)
[2017-12-19 13:00] VITALS: BP 182/81
[2017-12-24] MEDS ORDERED: ASPI81CH43 PO (10:23)
[2017-12-24] MEDS ORDERED: VERA120T2 PO (10:23)
[2017-12-24] MEDS ORDERED: INSLANTI SC (10:23)
[2017-12-24] MEDS ORDERED: CLO01T PO (10:23)
[2017-12-24] MEDS ORDERED: CLOP75TA28 PO (10:23)
== END 2017-12-19 13:00 | disposition left against medical advice (07) | DRG 683 ==
LOC: ER 10:14 → TELE 10:15 → TELE-EAST 19:57
PROVIDERS: ADMIT Internal Medicine; ATTEND Internal Medicine
DX: N17.9 Acute kidney failure, unspecified (principal); J44.1 Chronic obstructive pulmonary disease with (acute) exacerbation; E87.1 Hypo-osmolality and hyponatremia; A08.4 Viral intestinal infection, unspecified; N18.4 Chronic kidney disease, stage 4 (severe); E88.09 Other disorders of plasma-protein metabolism, not elsewhere classified; E11.65 Type 2 diabetes mellitus with hyperglycemia; I12.9 Hypertensive chronic kidney disease with stage 1 through stage 4 chronic kidney disease, or unspecified chronic kidney disease; K59.00 Constipation, unspecified; F12.90 Cannabis use, unspecified, uncomplicated; I25.10 Atherosclerotic heart disease of native coronary artery without angina pectoris; D64.9 Anemia, unspecified; E86.0 Dehydration; E11.43 Type 2 diabetes mellitus with diabetic autonomic (poly)neuropathy; K31.84 Gastroparesis; E11.51 Type 2 diabetes mellitus with diabetic peripheral angiopathy without gangrene; E11.21 Type 2 diabetes mellitus with diabetic nephropathy; J44.9 Chronic obstructive pulmonary disease, unspecified; Z79.02 Long term (current) use of antithrombotics/antiplatelets; Z82.49 Family history of ischemic heart disease and other diseases of the circulatory system; Z88.8 Allergy status to other drugs, medicaments and biological substances; Z91.041 Radiographic dye allergy status; Z85.72 Personal history of non-Hodgkin lymphomas; Z87.891 Personal history of nicotine dependence; Z91.14 Patient's other noncompliance with medication regimen; Z91.19 Patient's noncompliance with other medical treatment and regimen; Z92.21 Personal history of antineoplastic chemotherapy; Z92.3 Personal history of irradiation; Z95.5 Presence of coronary angioplasty implant and graft; Z85.71 Personal history of Hodgkin lymphoma; Z79.4 Long term (current) use of insulin; Z53.21 Procedure and treatment not carried out due to patient leaving prior to being seen by health care provider
CPT/HCPCS: 36415; 71046; 74176; 80053; 80307; 81001; 82150; 82550; 82962; 83036; 83690; 83735; 83880; 84443; 84484; 85025; 85610; 85652; 85730; 86141; 94640; 96361; 96374; 96375; C9113; J0696; J1815; J2405; J3490